=== PATIENT | male | born 1990 | race Caucasian/White ===

== ENCOUNTER 2018-02-19 11:32 | Emergency (ER) | payer MEDICAID ==
[2018-02-19] MEDS ORDERED: LIDOCAINE-EPINEPH-TETRACAINE 3 ML SYRINGE TOP STA (12:08)
[2018-02-19] MEDS ORDERED: LIDOCAINE-EPINEPH-TETRACAINE 3 ML SYRINGE TOP ONE (12:14)
--- NOTE | 2018-02-19 13:27 | ED Physician Documentation ---
History of Present Illness - Stated complaint Stated Complaint: FACIAL SWELLING - Chief complaint Chief Complaint: Wound - Additonal information Additional information: hx from pt 27 m severe dental decay now abscess upper right and facial swelling no DM or immune compromise no dentist Review of Systems Constitutional: denies: Fever Throat: reports: Dental pain / toothache Immunocompromised: denies: Immunocompromised PD PAST MEDICAL HISTORY - Past Medical History Past Medical History: No Cardiovascular: None Respiratory: None Neuro: None Endocrine/Autoimmune: None GI: None : None HEENT: None Psych: None Musculoskeletal: None Derm: None - Past Surgical History Past Surgical History: No - Present Medications Home Medications: Ambulatory Orders Medication Instructions Recorded Confirmed Amox/Clav 875/125 [Augmentin] 1 each PO Q12H #20 tablet 02/19/18 - Allergies Allergies/Adverse Reactions: Allergies Allergy/AdvReac Type Severity Reaction Status Date / Time No Known Drug Allergies Allergy Verified 02/19/18 11:50 - Social History Does the pt smoke?: Yes Smoking Status: Current some day smoker Does the pt drink ETOH?: Yes Does the pt have substance abuse?: Yes Substance Use and Type: Marijuana - Immunizations Immunizations are current?: Yes - POLST Patient has POLST: No PD ED PE NORMAL - Vitals Vital signs reviewed: Yes (tachy) - HEENT HEENT: Other (extensive decay most teeth blackened and eroded to the gum line, grape size pruple abscess to upper right gum near premolar and right cheek swelling, no trismus, no tingue elevation no neck or submandibular swelling) - Cardiac Cardiac: RRR, No murmur - Respiratory Respiratory: No respiratory distress Results - Vitals Vitals: Vital Signs - 24 hr 02/19/18 11:37 Temperature 36.5 C Heart Rate 113 H Respiratory 16 Rate Blood Pressure 132/82 H O2 Saturation 99 Oxygen O2 Source Room air Procedures - Abscess I&D (location) gum Incision: Needle aspiration, Purulent drainage, Culture obtained Other: Pt tolerated well Departure - Departure Disposition: Home, Self Care Clinical Impression: Dental abscess Condition: Good Instructions: ED Abscess Dental Follow-Up: Delbert Ackerman DDS [Provider Admit Priv/Credential] - Prescriptions: Amox/Clav 875/125 [Augmentin] 1 each PO Q12H #20 tablet Comments: Now that the abscess is drained you should start to feel better Please take all the antibiotics as prescribed - it is a strong antibiotic so I recommend you eat some yogurt every day to prevent diarrhea If you get worse again come back to the ER or call the maxillofacial dental surgeon Dr Ackerman
[2018-02-19 13:51] VITALS: BP 122/71
== END 2018-02-19 13:50 | disposition home or self-care (01) ==
LOC: ED 11:32
DX: K04.7 Periapical abscess without sinus (principal); F17.200 Nicotine dependence, unspecified, uncomplicated
CPT/HCPCS: 87070; 87205; 99283

== ENCOUNTER 2018-12-24 23:25 | Emergency (ER) | payer MEDICAID ==
--- NOTE | 2018-12-24 23:43 | ED Physician Documentation ---
PD HPI ABD PAIN - Stated complaint Stated Complaint: CP/BACK FLANK PX - Chief complaint Chief Complaint: Cardiac - History obtained from History obtained from: Patient - History of Present Illness Timing - onset: How many weeks ago (he has had right lateral abd pain for about 4 weeks, and was Dx with appendagitis at [facility] 12/18. No Rx given, per patient. He is taking Ibuprofen without improvement and has had increased pain the past 4 days, with radiation of it into anterior chest and some to left lower chest/upper abd now as well.) Timing - duration: Weeks (4) Timing - details: Abrupt onset, Still present Quality: Aching, Sharp, Pain Location: RUQ (and lateral right abd.) Radiation: Chest Improved by: No: Eating Worsened by: Moving, Position. No: Eating, Breathing, Palpation Associated symptoms: Nausea, Constipation. No: Fever, Vomiting, Diarrhea, Melena Recently seen: Emergency Dept ([facility] 12/18/18 and Dw with epiploic appendagitis.) Review of Systems Constitutional: reports: Myalgias. denies: Fever, Chills Nose: denies: Rhinorrhea / runny nose, Congestion Throat: denies: Sore throat Cardiac: reports: Chest pain / pressure. denies: Palpitations Respiratory: denies: Cough GI: reports: Abdominal Pain, Nausea. denies: Vomiting, Diarrhea : denies: Dysuria, Frequency Skin: denies: Rash Neurologic: reports: Generalized weakness. denies: Focal weakness, Numbness, Near syncope PD PAST MEDICAL HISTORY - Past Medical History Cardiovascular: None Respiratory: None Endocrine/Autoimmune: None GI: None : None HEENT: None Psych: None Musculoskeletal: None Derm: None - Past Surgical History Past Surgical History: No - Present Medications Home Medications: Ambulatory Orders Medication Instructions Recorded Confirmed Dexamethasone [Decadron] 4 mg PO DAILY #5 tablet 12/25/18 Docusate Sodium 100 mg PO DAILY #15 capsule 12/25/18 Naproxen 500 mg PO BID #20 tablet 12/25/18 Ondansetron Odt [Zofran] 4 mg TL Q6H PRN #20 tablet 12/25/18 Oxycodone HCl/Acetaminophen 1 - 2 each PO Q6H PRN #25 tablet 12/25/18 [Percocet 5-325 mg Tablet] - Allergies Allergies/Adverse Reactions: Allergies Allergy/AdvReac Type Severity Reaction Status Date / Time No Known Drug Allergies Allergy Verified 12/24/18 23:45 - Social History Does the pt smoke?: Yes Smoking Status: Current some day smoker Does the pt drink ETOH?: Yes Does the pt have substance abuse?: Yes - Immunizations Immunizations are current?: Yes - POLST Patient has POLST: No PD ED PE NORMAL - Vitals Vital signs reviewed: Yes - General General: Alert and oriented X 3, Well developed/nourished, Other (appears in pain due to abd. ) - HEENT HEENT: Pharynx benign - Neck Neck: Supple, no meningeal sign, No adenopathy - Cardiac Cardiac: RRR, No murmur - Respiratory Respiratory: Clear bilaterally - Abdomen Abdomen: Soft, Non distended, No organomegaly, Other (tender right side mid abdomen and lateral abd. Not tender CVA area per se. Some percussion tenderness and localized rebound. ) - Male Male : Deferred - Rectal Rectal: Deferred - Back Back: No CVA TTP - Derm Derm: Normal color, Warm and dry Results - Vitals Vitals: Vital Signs - 24 hr 12/24/18 12/25/18 12/25/18 23:29 00:08 00:21 Temperature 36.7 C Heart Rate 77 68 80 Respiratory 18 13 17 Rate Blood Pressure 141/86 H 129/95 H 129/95 H O2 Saturation 99 97 99 12/25/18 12/25/18 12/25/18 00:40 02:20 02:44 Temperature 36.9 C Heart Rate 67 69 68 Respiratory 13 19 14 Rate Blood Pressure 120/74 140/83 H 128/91 H O2 Saturation 97 100 99 12/25/18 03:20 Temperature 36.7 C Heart Rate 62 Respiratory 12 Rate Blood Pressure 129/90 H O2 Saturation 97 Oxygen O2 Source Room air - Labs Labs: Laboratory Tests 12/24/18 12/24/18 12/25/18 23:45 23:45 00:47 WBC 11.5 H RBC 4.49 L Hgb 14.2 Hct 41.5 L MCV 92.5 MCH 31.5 H MCHC 34.1 RDW 13.2 Plt Count 270 MPV 8.3 Neut # (Auto) 8.0 H Lymph # (Auto) 2.8 [place] # (Auto) 0.6 Eos # (Auto) 0.1 Baso # (Auto) 0.1 Absolute Nucleated RBC 0.00 Nucleated RBC % 0.0 Sodium 137 Potassium 3.7 Chloride 99 L Carbon Dioxide 26 Anion Gap 12.0 BUN 15 Creatinine 0.8 Estimated GFR (MDRD) 114 Glucose 112 H Lactic Acid Calcium 9.2 Magnesium 2.1 Total Bilirubin 0.8 AST 21 ALT 16 Alkaline Phosphatase 68 Total Protein 8.0 Albumin 4.6 Globulin 3.4 Albumin/Globulin Ratio 1.4 Lipase 90 H Urine Color YELLOW Urine Clarity CLEAR Urine pH 7.5 Ur Specific [place] 1.015 Urine Protein NEGATIVE Urine Glucose (UA) NEGATIVE Urine Ketones >=80 H Urine Occult Blood NEGATIVE Urine Nitrite NEGATIVE Urine Bilirubin NEGATIVE Urine Urobilinogen 0.2 (NORMAL) Ur Leukocyte Esterase NEGATIVE Ur Microscopic Review NOT INDICATED Urine Culture Comments NOT INDICATED 12/25/18 01:40 WBC RBC Hgb Hct MCV MCH MCHC RDW Plt Count MPV Neut # (Auto) Lymph # (Auto) [place] # (Auto) Eos # (Auto) Baso # (Auto) Absolute Nucleated RBC Nucleated RBC % Sodium Potassium Chloride Carbon Dioxide Anion Gap BUN Creatinine Estimated GFR (MDRD) Glucose Lactic Acid 0.6 Calcium Magnesium Total Bilirubin AST ALT Alkaline Phosphatase Total Protein Albumin Globulin Albumin/Globulin Ratio Lipase Urine Color Urine Clarity Urine pH Ur Specific [place] Urine Protein Urine Glucose (UA) Urine Ketones Urine Occult Blood Urine Nitrite Urine Bilirubin Urine Urobilinogen Ur Leukocyte Esterase Ur Microscopic Review Urine Culture Comments - Rads (name of study) abd and chest CT with contrast Radiology: Prelim report reviewed, See rad report PD MEDICAL DECISION MAKING - ED course Complexity details: reviewed old records (from [facility] ER. ), re- evaluated patient, considered differential, d/w patient Departure - Departure Disposition: 01 Home, Self Care Clinical Impression: Right lateral abdominal pain, Epiploic appendagitis Condition: Stable Record reviewed to determine appropriate education?: Yes Instructions: Abdominal Pain Follow-Up: Flory Cárdenas ARNP [Primary Care Provider] - Virgil Jones MD [Provider Admit Priv/Credential] - Prescriptions: Dexamethasone [Decadron] 4 mg PO DAILY #5 tablet Docusate Sodium 100 mg PO DAILY #15 capsule Naproxen 500 mg PO BID #20 tablet Ondansetron Odt [Zofran] 4 mg TL Q6H PRN #20 tablet PRN Reason: Nausea / Vomiting Oxycodone HCl/Acetaminophen [Percocet 5-325 mg Tablet] 1 - 2 each PO Q6H PRN #25 tablet PRN Reason: pain Comments: Stay well-hydrated and drink lots of fluids. Anti-inflammatories of naproxen twice daily for a week and Decadron daily for 5 days. Take these with food. Ondansetron if needed for nausea. Daily stool softener to keep from getting constipated. Add Tylenol or oxycodone as needed for pain. Off work for couple of days. Recheck if not improving over the next couple of days. The CT scan today did not show any obvious abnormalities. It would seem therefore that the inflammation of the appendage otitis is decreasing and so would expect the symptoms to improve especially with adding the above medications. Call the surgery office for follow-up if not improved over the next couple of days. Return to the ER as needed. Forms: Activity restrictions Discharge Date/Time: 12/25/18 03:40
[2018-12-25] MEDS ORDERED: SODIUM CHLORIDE 0.9% 1,000 ML IV ONE (00:09)
[2018-12-25] MEDS ORDERED: HYDROmorphone 1 MG/ML CARPUJECT IVP STA ×2 (00:09→02:00)
[2018-12-25] MEDS ORDERED: KETOROLAC 15 MG/ML VIAL IVP STA (00:09)
[2018-12-25] MEDS ORDERED: ONDANSETRON 4 MG/2 ML VIAL IVP STA (00:09)
[2018-12-25 00:37] LABS: BASOPHILS # (AUTO) 0.1 10^3/uL (0.0-0.1); BASOPHILS % (AUTO) 0.5 %; EOSINOPHILS # (AUTO) 0.1 10^3/uL (0.0-0.7); EOSINOPHILS % (AUTO) 0.7 %; HGB - HEMOGLOBIN 14.2 g/dL (14.0-18.0); LYMPHOCYTES # (AUTO) 2.8 10^3/uL (1.5-3.5); LYMPHOCYTES % (AUTO) 23.9 %; MEAN CORPUSCULAR HEMOGLOBIN 31.5 pg (27.0-31.0); MEAN CORPUSCULAR HGB CONC 34.1 g/dL (32.0-36.0); MEAN CORPUSCULAR VOLUME 92.5 fL (80.0-94.0); MEAN PLATELET VOLUME 8.3 fL (7.4-11.4); MONOCYTES # (AUTO) 0.6 10^3/uL (0.0-1.0); MONOCYTES % (AUTO) 5.4 %; NEUTROPHILS % (AUTO) 69.5 %; PLT - PLATELET COUNT 270 10^3/uL (130-450); RED BLOOD COUNT 4.49 10^6/uL (4.70-6.10); RED CELL DISTRIBUTION WIDTH 13.2 % (12.0-15.0); WHITE BLOOD COUNT 11.5 x10^3/uL (4.8-10.8)
[2018-12-25 00:45] LABS: ALBUMIN 4.6 g/dL (3.2-5.5); ALBUMIN/GLOBULIN RATIO 1.4 (1.0-2.2); BILIRUBIN,TOTAL 0.8 mg/dL (0.2-1.0); CALCIUM 9.2 mg/dL (8.5-10.3); CREATININE 0.8 mg/dL (0.6-1.2); MAGNESIUM 2.1 mg/dL (1.7-2.8)
[2018-12-25 01:03] LABS: BILIRUBIN,URINE NEGATIVE (NEGATIVE); GLUCOSE, URINE (UA) NEGATIVE (NEGATIVE); KETONES,URINE (UA) >=80 mg/dL (NEGATIVE); LEUKOCYTE ESTERASE, URINE NEGATIVE (NEGATIVE); NITRITE,URINE NEGATIVE (NEGATIVE); OCCULT BLOOD,URINE NEGATIVE (NEGATIVE); PH,URINE 7.5 PH (5.0-7.5); PROTEIN,URINE NEGATIVE (NEGATIVE); UROBILINOGEN,URINE 0.2 (NORMAL) E.U./dL (NORMAL)
[2018-12-25 01:05] LABS: CLARITY,URINE CLEAR (CLEAR)
[2018-12-25] MEDS ORDERED: IOVERSOL 320 100 ML VIAL IVP ONE ×2 (01:15→01:44)
--- NOTE | 2018-12-25 02:15 | CT Report ---
Reason: chest pain for few days Procedure Date: 12/25/2018 Accession Number: [id number] / [id number] Procedure: CT - CHEST W CPT Code: FULL RESULT: EXAM: CT CHEST EXAM DATE: 12/25/2018 01:28 AM. CLINICAL HISTORY: Chest pain. COMPARISONS: None. TECHNIQUE: Routine helical CT imaging was performed through the chest. IV contrast: Nonionic. Reconstructions: Coronal and sagittal. In accordance with CT protocol optimization, one or more of the following dose reduction techniques were utilized for this exam: automated exposure control, adjustment of mA and/or KV based on patient size, or use of iterative reconstructive technique. FINDINGS: Lungs/Pleura: No alveolar consolidation or pleural effusion seen. No pneumothorax. Mediastinum: Heart size is normal. No lymphadenopathy seen. Great vessels are unremarkable. Bones: Unremarkable. Visualized Abdomen: See separate abdomen and pelvis CT report. Other: None. IMPRESSION: 1. No acute abnormality seen in the chest. RADIA
--- NOTE | 2018-12-25 02:21 | CT Report ---
Reason: right abd pain for a month; Dx appendagitis 12/18 Procedure Date: 12/25/2018 Accession Number: [id number] / [id number] Procedure: CT - Abdomen/Pelvis W CPT Code: FULL RESULT: EXAM: CT ABDOMEN AND PELVIS EXAM DATE: 12/25/2018 01:46 AM. CLINICAL HISTORY: Right abdominal pain for a month; Dx appendagitis 12/18. COMPARISONS: None. TECHNIQUE: Routine helical CT imaging was performed through the abdomen and pelvis. IV contrast: 80ML OPTIRAY 320. Enteric contrast: No. Reconstructions: Coronal and sagittal. In accordance with CT protocol optimization, one or more of the following dose reduction techniques were utilized for this exam: automated exposure control, adjustment of mA and/or KV based on patient size, or use of iterative reconstructive technique. FINDINGS: Lung Bases: Unremarkable. Liver: No focal lesion identified. Gallbladder/Bile Ducts: Unremarkable. Spleen: Normal. Pancreas: Normal. Adrenal Glands: Normal. Kidneys: No masses or hydronephrosis. Peritoneal Cavity/Bowel: No bowel obstruction seen. No diverticulitis. No free air or free fluid. No lymphadenopathy. Appendix appears normal. Pelvic Organs: Normal. The bladder and visualized pelvic organs are within normal limits. Vasculature: No aneurysms or other significant abnormality. Bones: No significant abnormality. Other: None. IMPRESSION: 1. No acute inflammatory or obstructive process seen in the abdomen or pelvis. RADIA
[2018-12-25] MEDS ORDERED: DEXAMETHASONE 10 MG/ML VIAL IVP STA (03:00)
[2018-12-25] MEDS ORDERED: ONDANSETRON ODT 4 MG Prepack 2 TL PRN (03:00)
[2018-12-25] MEDS ORDERED: oxyCODONE/ACET 5/325 Prepack 4 PO STA (03:00)
[2018-12-25 03:21] VITALS: BP 129/90
== END 2018-12-25 03:40 | disposition home or self-care (01) ==
LOC: ED 23:25
DX: R10.9 Unspecified abdominal pain (principal); K63.89 Other specified diseases of intestine; F17.200 Nicotine dependence, unspecified, uncomplicated
CPT/HCPCS: 36415; 71260; 74177; 80053; 81003; 83605; 83690; 83735; 85025; 93005; 96361; 96374; 96375; 96376; 99283; 99285; J1170; Q9967; 81001; 87086

== ENCOUNTER 2019-01-06 10:58 | Emergency (ER) | payer MEDICAID ==
[2019-01-06 13:22] LABS: BASOPHILS # (AUTO) 0.1 10^3/uL (0.0-0.1); BASOPHILS % (AUTO) 0.5 %; EOSINOPHILS % (AUTO) 0.2 %; HGB - HEMOGLOBIN 14.2 g/dL (14.0-18.0); LYMPHOCYTES # (AUTO) 2.8 10^3/uL (1.5-3.5); LYMPHOCYTES % (AUTO) 20.3 %; MEAN CORPUSCULAR HEMOGLOBIN 31.4 pg (27.0-31.0); MEAN CORPUSCULAR HGB CONC 34.4 g/dL (32.0-36.0); MEAN CORPUSCULAR VOLUME 91.2 fL (80.0-94.0); MEAN PLATELET VOLUME 7.7 fL (7.4-11.4); MONOCYTES % (AUTO) 7.4 %; NEUTROPHILS # (AUTO) 9.8 10^3/uL (1.5-6.6); NEUTROPHILS % (AUTO) 71.6 %; PLT - PLATELET COUNT 284 10^3/uL (130-450); RED BLOOD COUNT 4.54 10^6/uL (4.70-6.10); RED CELL DISTRIBUTION WIDTH 13.3 % (12.0-15.0); WHITE BLOOD COUNT 13.6 x10^3/uL (4.8-10.8)
[2019-01-06 13:35] LABS: ALBUMIN 4.8 g/dL (3.2-5.5); ALBUMIN/GLOBULIN RATIO 1.5 (1.0-2.2); BILIRUBIN,TOTAL 1.2 mg/dL (0.2-1.0); CALCIUM 9.4 mg/dL (8.5-10.3); CREATININE 0.9 mg/dL (0.6-1.2); TOTAL PROTEIN 7.9 g/dL (6.7-8.2)
[2019-01-06] MEDS ORDERED: SODIUM CHLORIDE 0.9% 1,000 ML IV ONE (14:17)
[2019-01-06] MEDS ORDERED: ONDANSETRON 4 MG/2 ML VIAL IVP STA (14:17)
--- NOTE | 2019-01-06 14:29 | ED Physician Documentation ---
History of Present Illness - Stated complaint Stated Complaint: LT SIDE PX/VOMTING - Chief complaint Chief Complaint: General - Additonal information Additional information: 28-year-old male presents the emergency department with complaints of several days of left flank pain which radiates into his lower abdomen. The symptoms are associated with nausea and vomiting. The patient denies any pain in his testicles or lower abdomen. The patient denies blood in the vomit or stools. Symptoms are described as moderate. Symptoms improved with naproxen today. No other associated symptoms. Review of Systems Constitutional: denies: Fever, Chills Eyes: denies: Discharge Ears: denies: Ear pain Nose: denies: Congestion Throat: denies: Sore throat Cardiac: denies: Chest pain / pressure Respiratory: denies: Cough GI: reports: Abdominal Pain, Nausea, Vomiting Skin: denies: Rash Musculoskeletal: denies: Neck pain Neurologic: denies: Generalized weakness Immunocompromised: denies: Chemotherapy PD PAST MEDICAL HISTORY - Past Medical History Cardiovascular: None Respiratory: None Endocrine/Autoimmune: None GI: None : None HEENT: None Psych: None Musculoskeletal: None Derm: None - Past Surgical History Past Surgical History: No - Present Medications Home Medications: Ambulatory Orders Medication Instructions Recorded Confirmed Dexamethasone [Decadron] 4 mg PO DAILY #5 tablet 12/25/18 Docusate Sodium 100 mg PO DAILY #15 capsule 12/25/18 Naproxen 500 mg PO BID #20 tablet 12/25/18 Ondansetron Odt [Zofran] 4 mg TL Q6H PRN #20 tablet 12/25/18 Oxycodone HCl/Acetaminophen 1 - 2 each PO Q6H PRN #25 tablet 12/25/18 [Percocet 5-325 mg Tablet] - Allergies Allergies/Adverse Reactions: Allergies Allergy/AdvReac Type Severity Reaction Status Date / Time No Known Drug Allergies Allergy Verified 01/06/19 11:22 - Social History Does the pt smoke?: Yes Smoking Status: Current every day smoker Does the pt drink ETOH?: Yes Does the pt have substance abuse?: Yes - Immunizations Immunizations are current?: Yes - POLST Patient has POLST: No PD ED PE NORMAL - General General: Alert and oriented X 3, No acute distress - HEENT HEENT: Atraumatic, PERRL, EOMI, Ears normal - Neck Neck: Supple, no meningeal sign - Cardiac Cardiac: RRR (Regular tachycardia), Strong equal pulses - Respiratory Respiratory: No respiratory distress - Abdomen Abdomen: Soft, Non distended. No: Non tender (Tender to palpation in the left upper abdomen/left flank) - Derm Derm: Normal color - Extremities Extremities: No deformity - Neuro Neuro: Alert and oriented X 3, Normal speech - Psych Psych: Normal affect Results - Vitals Vitals: Vital Signs - 24 hr 01/06/19 01/06/19 11:19 13:22 Temperature 36.8 C 37.0 C Heart Rate 115 H 82 Respiratory 16 18 Rate Blood Pressure 129/100 H 130/80 O2 Saturation 98 99 Oxygen O2 Source Room air - Labs Labs: Laboratory Tests 01/06/19 01/06/19 01/06/19 13:05 13:05 14:15 WBC 13.6 H RBC 4.54 L Hgb 14.2 Hct 41.4 L MCV 91.2 MCH 31.4 H MCHC 34.4 RDW 13.3 Plt Count 284 MPV 7.7 Neut # (Auto) 9.8 H Lymph # (Auto) 2.8 [place] # (Auto) 1.0 Eos # (Auto) 0.0 Baso # (Auto) 0.1 Absolute Nucleated RBC 0.01 Nucleated RBC % 0.0 Sodium 133 L Potassium 3.8 Chloride 94 L Carbon Dioxide 28 Anion Gap 11.0 BUN 22 H Creatinine 0.9 Estimated GFR (MDRD) 99 Glucose 108 H Calcium 9.4 Total Bilirubin 1.2 H AST 18 ALT 18 Alkaline Phosphatase 66 Total Protein 7.9 Albumin 4.8 Globulin 3.1 Albumin/Globulin Ratio 1.5 Lipase 22 Urine Color DARK YELLOW Urine Clarity CLEAR Urine pH 6.5 Ur Specific [place] 1.025 Urine Protein NEGATIVE Urine Glucose (UA) NEGATIVE Urine Ketones >=80 H Urine Occult Blood NEGATIVE Urine Nitrite NEGATIVE Urine Bilirubin NEGATIVE Urine Urobilinogen 1 (NORMAL) Ur Leukocyte Esterase NEGATIVE Ur Microscopic Review NOT INDICATED Urine Culture Comments NOT INDICATED - Rads (name of study) CT KUB Radiology: Final report received, See rad report (IMPRESSION: No urinary tract stones or obstruction. No etiology by CT for symptoms of left-sided flank pain. ) PD MEDICAL DECISION MAKING - ED course ED course: Please follow-up with primary care for recheck and reevaluation. Please return to the emergency department for any worsening or concerning Departure - Departure Disposition: Home, Self Care Clinical Impression: Flank pain, acute Condition: Good Instructions: ED Flank Pain Uncertain Cause, ED Abdominal Pain Unkn Cause Follow-Up: Flory Cárdenas ARNP [Primary Care Provider] - Within 1 week Comments: Please return to the emergency department for any worsening or any concerns
[2019-01-06 14:41] LABS: GLUCOSE, URINE (UA) NEGATIVE (NEGATIVE); KETONES,URINE (UA) >=80 mg/dL (NEGATIVE); LEUKOCYTE ESTERASE, URINE NEGATIVE (NEGATIVE); NITRITE,URINE NEGATIVE (NEGATIVE); OCCULT BLOOD,URINE NEGATIVE (NEGATIVE); PH,URINE 6.5 PH (5.0-7.5); PROTEIN,URINE NEGATIVE (NEGATIVE); UROBILINOGEN,URINE 1 (NORMAL) E.U./dL (NORMAL)
[2019-01-06 14:43] LABS: BILIRUBIN,URINE NEGATIVE (NEGATIVE); CLARITY,URINE CLEAR (CLEAR); ICTOTEST,URINE NEGATIVE
--- NOTE | 2019-01-06 14:46 | CT Report ---
Reason: left flank pain Procedure Date: 01/06/2019 Accession Number: [id number] / [id number] Procedure: CT - Abdomen/Pelvis WO CPT Code: FULL RESULT: EXAM: CT ABDOMEN AND PELVIS (CT KUB) EXAM DATE: 01/06/2019 02:31 PM. CLINICAL HISTORY: Left flank pain. COMPARISONS: ABDOMEN/PELVIS W/ 12/25/2018 1:28 AM. TECHNIQUE: Routine axial helical CT imaging was performed through the abdomen and pelvis without IV contrast. Reconstructions: Coronal and sagittal. In accordance with CT protocol optimization, one or more of the following dose reduction techniques were utilized for this exam: automated exposure control, adjustment of mA and/or KV based on patient size, or use of iterative reconstructive technique. FINDINGS: Lung Bases: Unremarkable. Right Kidney/Ureter: No stones, hydronephrosis, or hydroureter. No perinephric fat stranding. Left Kidney/Ureter: No stones, hydronephrosis, or hydroureter. No perinephric fat stranding. Other Solid Organs: Noncontrast images of the solid organs are grossly unremarkable. Gallbladder/Bile Ducts: Unremarkable. Peritoneal Cavity: No free fluid, free air or savita adenopathy. Bowel is grossly unremarkable. Pelvic Organs: No bladder stones or wall thickening. Noncontrast images of the visualized pelvic organs are unremarkable. Vasculature: Unremarkable. Other: None. IMPRESSION: No urinary tract stones or obstruction. No etiology by CT for symptoms of left-sided flank pain. RADIA
[2019-01-06 15:46] VITALS: BP 153/93
== END 2019-01-06 15:51 | disposition home or self-care (01) ==
LOC: ED 10:58
DX: R10.32 Left lower quadrant pain (principal); F17.200 Nicotine dependence, unspecified, uncomplicated
CPT/HCPCS: 36415; 74176; 80053; 81001; 81003; 83690; 85025; 87086; 96361; 96374; 99283

== ENCOUNTER 2019-07-30 13:36 | Emergency (ER) | payer MEDICAID ==
[2019-07-30 13:42] VITALS: BP 115/67
--- NOTE | 2019-07-30 14:09 | ED Physician Documentation ---
PD HPI ABD PAIN - Stated complaint Stated Complaint: ABD PX - Chief complaint Chief Complaint: Abd Pain - History obtained from History obtained from: Patient (29-year-old gentleman with history of appendagitis, no history of abdominal surgeries or other abdominal issue. He has had some mild ongoing issues with abdominal pain since his diagnosis of appendagitis which was in November of last year. Would last 2 days has had more significant pain kind of along both sides of the abdomen which is actually gone now as we speak. Its associated with a few episodes of vomiting and soft stools. No fevers.) Review of Systems Ten Systems: 10 systems reviewed and negative Constitutional: denies: Fever, Chills GI: reports: Abdominal Pain, Vomiting, Diarrhea. denies: Nausea, Hematemesis, Bloody / black stool : denies: Dysuria, Frequency PD PAST MEDICAL HISTORY - Past Medical History Past Medical History: Yes Cardiovascular: None Respiratory: None Endocrine/Autoimmune: None GI: None : None HEENT: None Psych: None Musculoskeletal: None Derm: None - Past Surgical History Past Surgical History: No - Present Medications Home Medications: Ambulatory Orders Medication Instructions Recorded Confirmed Docusate Sodium 100 mg PO DAILY #15 capsule 12/25/18 Naproxen 500 mg PO BID #20 tablet 12/25/18 Ondansetron Odt [Zofran] 4 mg TL Q6H PRN #20 tablet 12/25/18 Oxycodone HCl/Acetaminophen 1 - 2 each PO Q6H PRN #25 tablet 12/25/18 [Percocet 5-325 mg Tablet] dexAMETHasone [Decadron] 4 mg PO DAILY #5 tablet 12/25/18 - Allergies Allergies/Adverse Reactions: Allergies Allergy/AdvReac Type Severity Reaction Status Date / Time No Known Drug Allergies Allergy Verified 07/30/19 13:38 - Social History Does the pt smoke?: Yes Smoking Status: Current every day smoker Does the pt drink ETOH?: Yes Does the pt have substance abuse?: Yes - Immunizations Immunizations are current?: Yes - POLST Patient has POLST: No PD ED PE NORMAL - Vitals Vital signs reviewed: Yes - General General: Alert and oriented X 3, No acute distress - Abdomen Abdomen: Normal bowel sounds, Soft, Other (Abdomen is soft, minimal left lower quadrant tenderness, no right lower quadrant tenderness. No surgical signs.) - Back Back: No CVA TTP, No spinal TTP - Derm Derm: Normal color, Warm and dry, No rash - Extremities Extremities: No edema, No calf tenderness / cord - Neuro Neuro: Alert and oriented X 3, Normal speech Results - Vitals Vitals: Vital Signs - 24 hr 07/30/19 13:38 Temperature 36.5 C Heart Rate 78 Respiratory 16 Rate Blood Pressure 115/67 O2 Saturation 99 Oxygen O2 Source Room air - Labs Labs: Laboratory Tests 07/30/19 07/30/19 07/30/19 14:15 14:15 14:15 WBC 10.7 RBC 4.34 L Hgb 13.9 L Hct 40.6 L MCV 93.5 MCH 32.0 H MCHC 34.2 RDW 13.0 Plt Count 262 MPV 9.6 Neut # (Auto) 7.7 H Lymph # (Auto) 2.4 [place] # (Auto) 0.4 Eos # (Auto) 0.1 Baso # (Auto) 0.1 Absolute Nucleated RBC 0.00 Nucleated RBC % 0.0 ESR 4 Sodium 137 Potassium 3.9 Chloride 98 L Carbon Dioxide 28 Anion Gap 11.0 BUN 11 Creatinine 0.8 Estimated GFR (MDRD) 113 Glucose 99 Calcium 9.2 Total Bilirubin 0.7 AST 17 ALT 13 Alkaline Phosphatase 64 C-Reactive Protein < 1.0 Total Protein 7.7 Albumin 4.6 Globulin 3.1 Albumin/Globulin Ratio 1.5 Lipase 20 L PD MEDICAL DECISION MAKING - ED course ED course: 29-year-old gentleman with abdominal pain, the pattern is not consistent with a surgical emergency such as appendicitis, his inflammatory markers are reassuring. He was given appendicitis precautions but seems very low risk for this right now. Departure - Departure Disposition: 01 Home, Self Care Clinical Impression: Abdominal pain Qualifiers: Abdominal location: generalized Qualified Code(s): R10.84 - Generalized abdominal pain Record reviewed to determine appropriate education?: Yes Instructions: ED Abdominal Pain Appendx Poss Comments: If pain settles into the bottom right or generally worsens or you develop other new symptoms please return immediately for reevaluation. Follow-up with your doctor on Sunday for recheck.
[2019-07-30 14:23] LABS: BASOPHILS # (AUTO) 0.1 10^3/uL (0.0-0.1); BASOPHILS % (AUTO) 0.5 %; EOSINOPHILS # (AUTO) 0.1 10^3/uL (0.0-0.7); EOSINOPHILS % (AUTO) 1.1 %; HGB - HEMOGLOBIN 13.9 g/dL (14.0-18.0); LYMPHOCYTES # (AUTO) 2.4 10^3/uL (1.5-3.5); LYMPHOCYTES % (AUTO) 22.6 %; MEAN CORPUSCULAR HGB CONC 34.2 g/dL (32.0-36.0); MEAN CORPUSCULAR VOLUME 93.5 fL (80.0-94.0); MEAN PLATELET VOLUME 9.6 fL (7.4-11.4); MONOCYTES # (AUTO) 0.4 10^3/uL (0.0-1.0); MONOCYTES % (AUTO) 4.1 %; NEUTROPHILS # (AUTO) 7.7 10^3/uL (1.5-6.6); NEUTROPHILS % (AUTO) 71.3 %; PLT - PLATELET COUNT 262 10^3/uL (130-450); RED BLOOD COUNT 4.34 10^6/uL (4.70-6.10); WHITE BLOOD COUNT 10.7 x10^3/uL (4.8-10.8)
[2019-07-30 14:39] LABS: ALBUMIN 4.6 g/dL (3.2-5.5); ALBUMIN/GLOBULIN RATIO 1.5 (1.0-2.2); ALKALINE PHOSPHATASE 64 IU/L (42-121); ALT ALANINE AMINOTRANSFERASE 13 IU/L (10-60); AST ASPARTATE AMINOTRANSFERASE 17 IU/L (10-42); BILIRUBIN,TOTAL 0.7 mg/dL (0.2-1.0); BUN - BLOOD UREA NITROGEN 11 mg/dL (6-20); CALCIUM 9.2 mg/dL (8.5-10.3); CARBON DIOXIDE - CO2 28 mmol/L (21-32); CHLORIDE 98 mmol/L (101-111); CREATININE 0.8 mg/dL (0.6-1.2); GFR - MDRD 113 (>89); GLUCOSE 99 mg/dL (70-100); LIPASE 20 U/L (22-51); SODIUM 137 mmol/L (135-145); TOTAL PROTEIN 7.7 g/dL (6.7-8.2)
[2019-07-30 14:40] LABS: CRP - C-REACTIVE PROTEIN < 1.0 mg/dL (0-1.0)
== END 2019-07-30 14:55 | disposition home or self-care (01) ==
LOC: ED 13:36
DX: R10.84 Generalized abdominal pain (principal); F17.200 Nicotine dependence, unspecified, uncomplicated
CPT/HCPCS: 36415; 80053; 83690; 85025; 85651; 86140; 99283; 99284

== ENCOUNTER 2019-10-09 20:06 | Emergency (ER) | payer MEDICAID ==
[2019-10-09 20:18] VITALS: BP 128/81
[2019-10-09] MEDS ORDERED: HYDROcod/ACET 5/325 Prepack 4 PO STA (20:24)
[2019-10-09] MEDS ORDERED: PANTOPRAZOLE 40 MG TABLET PO STA (20:24)
[2019-10-09] MEDS ORDERED: CLINDAMYCIN 150 MG CAPSULE PO STA (20:25)
--- NOTE | 2019-10-09 20:34 | ED Physician Documentation ---
PD LYN HEENT - Stated complaint Stated Complaint: FACIAL SWELLING - Chief complaint Chief Complaint: Heent - History obtained from History obtained from: Patient - History of Present Illness Timing - onset: Other (29-year-old gentleman with chronic abdominal pain, tobacco use presents to the emergency department complaining mostly about several days of left upper dental pain. Its been many years since he saw dentist. We discussed his abdominal pain, he has basically daily upper abdominal pain associate with vomiting and weight loss. He admits to almost daily marijuana use. He uses ranitidine on occasion which does help. His stools are variable but not absent. He has had this worked up in the emergency department with negative findings. He does have a remote history of ulcers and epiploic appendagitis. He wants to quit smoking. We discussed Chantix and the potential side effects and he wants to go ahead and try it. He is clearly a heavy smoker. The dental pain is been going on for a few days and is over the left maxillary canine with some drainage from the almost absent tooth now which is eroded down to the gumline as are all of his teeth. He notes facial swelling but is not visible on examination. No fevers.) Review of Systems Constitutional: denies: Fever, Chills Nose: denies: Rhinorrhea / runny nose Throat: reports: Dental pain / toothache. denies: Sore throat Cardiac: denies: Palpitations Respiratory: denies: Dyspnea, Cough PD PAST MEDICAL HISTORY - Past Medical History Cardiovascular: None Respiratory: None Endocrine/Autoimmune: None GI: None : None HEENT: None Psych: None Musculoskeletal: None Derm: None - Past Surgical History Past Surgical History: No - Present Medications Home Medications: Ambulatory Orders Medication Instructions Recorded Confirmed Docusate Sodium 100 mg PO DAILY #15 capsule 12/25/18 Naproxen 500 mg PO BID #20 tablet 12/25/18 Ondansetron Odt [Zofran] 4 mg TL Q6H PRN #20 tablet 12/25/18 Oxycodone HCl/Acetaminophen 1 - 2 each PO Q6H PRN #25 tablet 12/25/18 [Percocet 5-325 mg Tablet] dexAMETHasone [Decadron] 4 mg PO DAILY #5 tablet 12/25/18 Clindamycin HCl [Clindamycin 300MG 300 mg PO Q6H #28 capsule 10/09/19 CAP] Hydrocodone/Acetaminophen 1 - 2 each PO Q6H PRN #14 tablet 10/09/19 [Hydrocodon-Acetaminophen 5-325] Omeprazole 20 mg PO DAILY #30 capsule. 10/09/19 Promethazine [Phenergan] 25 mg PO Q6H PRN #10 tab 10/09/19 Varenicline Tartrate [Chantix] 0.5 mg PO DAILY #11 tablet 10/09/19 Varenicline Tartrate [Chantix] 1 mg PO BID #154 tablet 10/09/19 - Allergies Allergies/Adverse Reactions: Allergies Allergy/AdvReac Type Severity Reaction Status Date / Time No Known Drug Allergies Allergy Verified 10/09/19 20:18 - Social History Does the pt smoke?: Yes Smoking Status: Current every day smoker Does the pt drink ETOH?: Yes Does the pt have substance abuse?: Yes - Immunizations Immunizations are current?: Yes - POLST Patient has POLST: No PD ED PE NORMAL - Vitals Vital signs reviewed: Yes - General General: Alert and oriented X 3, No acute distress - HEENT HEENT: PERRL, EOMI, Other (He is basically almost edentulous with carious nubbins down to the gumline. There is some purulent drainage from the left maxillary canine without overlying facial swelling or trismus.) - Abdomen Abdomen: Soft, Non tender - Neuro Neuro: Alert and oriented X 3, Normal speech Results - Vitals Vitals: Vital Signs - 24 hr 10/09/19 20:10 Temperature 36.9 C Heart Rate 88 Respiratory 17 Rate Blood Pressure 128/81 H O2 Saturation 100 Oxygen O2 Source Room air PD MEDICAL DECISION MAKING - ED course ED course: This is a gentleman with chronic and ongoing abdominal pain which could be ulcer disease, also could be cannabinoid hyperemesis. He is advised to quit marijuana we will put him on a PPI. He also has a dental infection, started on antibiotics and he needs follow-up for that and he understands. After discussion and discussing the risks and benefits including the psychiatric risks of Chantix he would also like to try that. Departure - Departure Disposition: 01 Home, Self Care Clinical Impression: Pain due to dental caries, Tobacco abuse Condition: Good Instructions: ED Tooth Pain Prescriptions: Clindamycin HCl [Clindamycin 300MG CAP] 300 mg PO Q6H #28 capsule Hydrocodone/Acetaminophen [Hydrocodon-Acetaminophen 5-325] 1 - 2 each PO Q6H PRN #14 tablet PRN Reason: pain Omeprazole 20 mg PO DAILY #30 capsule. Promethazine [Phenergan] 25 mg PO Q6H PRN #10 tab PRN Reason: Nausea / Vomiting Varenicline Tartrate [Chantix] 0.5 mg PO DAILY #11 tablet Varenicline Tartrate [Chantix] 1 mg PO BID #154 tablet Comments: As discussed, your chronic abdominal symptoms could be due to frequent marijuana use. I would recommend recommend cessation of that. Also we talked about the potential downsides of Chantix, if you develop any of those please stop the use and come in for evaluation. It is very important that you follow-up with a dentist. When it comes to dental problems like yours, the emergency department can only offer a short-term solution to your long-term problem. A couple of low cost options for dental care include: [facility] in [place], calls [phone] for an appointment Or [facility] in [place], call [phone] for an appointment.
== END 2019-10-09 20:41 | disposition home or self-care (01) ==
LOC: ED 20:06
DX: K04.7 Periapical abscess without sinus (principal); K02.9 Dental caries, unspecified; F17.200 Nicotine dependence, unspecified, uncomplicated; R10.30 Lower abdominal pain, unspecified; R11.10 Vomiting, unspecified; F12.90 Cannabis use, unspecified, uncomplicated
CPT/HCPCS: 99283; 99284; A9270

== ENCOUNTER 2020-02-10 08:00 | Outpatient (CLI) | payer MEDICAID | END 2020-02-10 23:59 | disposition home or self-care (01) | LOC: LAB.R 08:00 | PROVIDERS: ATTEND Family Medicine | DX: R50.9 Fever, unspecified (principal) | CPT/HCPCS: 81599 ==